=== PATIENT | female | born 1970 | race Two or more races ===

== ENCOUNTER 2020-12-19 09:25 | Emergency (ER) | payer MEDICAID ==
[~2020-12-19] VITALS: Ht 144.8 cm; Wt 69.4 kg
[2020-12-19 10:12] VITALS: BP 141/80
--- NOTE | 2020-12-19 10:14 | NUR ---
pt states had covid in october. pt states recovered but still having lingering cough and sore throat. pt went to urgent care, started on abx. pt finished abx. denies fever/nausea/vomiting/diarrhea.
--- NOTE | 2020-12-19 10:21 | Emergency Room Report ---
History of Present Illness General Chief Complaint: Upper Respiratory Illness Source: Patient Present Illness HPI 50-year-old female presents to ED complaining of sore throat also complaining of back pain. States that she had Covid in October and states then states she has been having upper back pain. Denies fevers or chills. States she recently completed antibiotic prescription for her sore throat. Denies chest pain or shortness of breath. No other aggravating relieving factors. 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 COVID-19 Screening: Positive COVID-19 COVID-19 Testing Source: OCT 2020 Patient History Past Medical History: none Past Surgical History: none Pertinent Family History: none Social History: Denies: smoking, alcohol use, drug use Last Menstrual Period: NONE Now: No Immunizations: UTD Reviewed Nursing Documentation: PMH: Agreed; PSxH: Agreed Nursing Documentation-PMH Past Medical History: No History, Except For Review of Systems All Other Systems: negative except mentioned in HPI Physical Exam Vital Signs Date Time Temp Pulse Resp B/P (MAP) Pulse Ox O2 Delivery O2 Flow Rate FiO2 12/19/20 09:53 98.8 89 20 173/89 (117) 96 Room Air 12/19/20 10:12 100 Sp02 EP Interpretation: reviewed, normal General Appearance: no apparent distress, alert, GCS 15, non-toxic Head: normocephalic, atraumatic Eyes: bilateral eye normal inspection, bilateral eye PERRL ENT: hearing grossly normal, normal pharynx, no angioedema, normal voice Neck: full range of motion, supple/symm/no masses Respiratory: chest non-tender, lungs clear, normal breath sounds, speaking full sentences Cardiovascular #1: regular rate, rhythm, no edema Cardiovascular #2: 2+ carotid (R), 2+ carotid (L), 2+ radial (R), 2+ radial (L), 2+ dorsalis pedis (R), 2+ dorsalis pedis (L) Gastrointestinal: normal bowel sounds, non tender, soft, non-distended, no gua rding, no rebound Rectal: deferred Genitourinary: normal inspection, no CVA tenderness Musculoskeletal: back normal, normal range of motion, gait/station normal, tender - upper thoracic paraspinal pain Neurologic: alert, motor strength/tone normal, oriented x3, sensory intact, responsive, speech normal Psychiatric: judgement/insight normal, memory normal, mood/affect normal, no suicidal/homicidal ideation Reflexes: 3+ bicep (R), 3+ bicep (L), 3+ tricep (R), 3+ tricep (L), 3+ knee (R), 3+ knee (L) Lymphatic: no adenopathy Medical Decision Making Diagnostic Impression: Primary Impression: Back pain Qualified Codes: M54.6 - Pain in thoracic spine ER Course Hospital Course 50-year-old female presents complaining of upper back pain. Covid in October. Denies cough Differential diagnoses include: pyelonephritis, kidney stone, muscle strain, Lspine fracture Clinical course Patient placed on stretcher. After initial history and physical I ordered chest x-ray, EKG. Chest x-ray shows no focal consolidation. EKGnormal sinus rhythm no acute ischemic changes interpreted by me Discussed findings with patient. Likely muscular based on my exam. Vital stable. No signs of distress. Safe for discharge with close outpatient follow- up Diagnosis - back pain Stable and discharged to home. Followup with PMD. Return to ED if symptoms recur or worsen EKG Diagnostic Results Troponin ordered: No - no chest pain Rate: normal Rhythm: NSR ST Segments: no acute changes ASA given to the pt in ED: No Rhythm Strip Diag. Results EP Interpretation: yes Rhythm: NSR, no PVC's, no ectopy Chest X-Ray Diagnostic Results Chest X-Ray Diagnostic Results : Chest X-Ray Ordered: Yes # of Views/Limited/Complete: 1 View Indication: Other EP Interpretation: Yes Interpretation: no consolidation, no effusion, no pneumothorax, no acute cardiopulmonary disease Impression: No acute disease Electronically Signed by: Electronically signed by Aleksandr Palafox MD Last Vital Signs Date Time Temp Pulse Resp B/P (MAP) Pulse Ox O2 Delivery O2 Flow Rate FiO2 12/19/20 10:12 71 18 141/80 100 Room Air 12/19/20 10:12 100 12/19/20 09:53 98.8 Status: improved Disposition: HOME, SELF-CARE Condition: Stable Scripts Lidocaine Patch* (Lidoderm Patch*) 1 Each Adh..patch 1 PATCH TOPIC DAILY, #7 PATCH 0 Refills Patch(es) may remain in place for up to 12 hours in any 24-hour period. Prov: Aleksandr Palafox MD 12/19/20 Aleksandr Palafox MD Dec 19, 2020 10:21
[2020-12-19 10:57] VITALS: BP 122/74
[2020-12-19] MEDS ORDERED: LIDODERM700 M1 TOPIC (11:07)
--- NOTE | 2020-12-19 11:19 | NUR ---
ED Nurse Note: Pt cleared by health care Provider for discharge. DC instructions/prescription was given and explained to pt and verbalized understanding of teachings. All medical deviecs such as ID band removed. Pt is AAO x4, ambulatory and left with all personal belongings.
--- NOTE | 2020-12-19 14:50 | Diagnostic Imaging Report ---
Indication: Cough Technique: One view of the chest Comparison: none Findings: Lungs and pleural spaces are clear. Heart size is normal. Impression: No acute process
== END 2020-12-19 11:20 | disposition home or self-care (01) ==
LOC: EMR 10:33
DX: M54.6 Pain in thoracic spine (principal); R07.0 Pain in throat; Z86.16 Personal history of COVID-19
CPT/HCPCS: 71045; 93005; Z7502; 99283